=== PATIENT | male | born 1980 | race Caucasian/White ===

== ENCOUNTER 2017-05-29 10:25 | Emergency (ER) | payer MEDICAID ==
[2017-05-29 10:35] VITALS: BP 114/82
--- NOTE | 2017-05-29 10:55 | EDM.PDOC ---
ED HPI GENERAL MEDICAL PROBLEM - General Chief Complaint: Laceration Stated Complaint: [id number] BAD CUT ON HEAD Time Seen by Provider: 05/29/17 10:52 Source of Information: Reports: Patient History Limitations: Reports: No Limitations - History of Present Illness INITIAL COMMENTS - FREE TEXT/NARRATIVE: 36 yo male who presents with 3 cm laceration to forehead at hairline. States that he was hit atop the head with a nail gun that fell off a roof. Denies LOC. c/o pain to head at laceration site. denies pain or injury elsewhere. no other complaints. Onset: Today, Sudden Duration: Constant Location: Reports: Head Quality: Reports: Ache Severity: Moderate Improves with: Reports: None Worsens with: Reports: Other (palpation) Associated Symptoms: Reports: No Other Symptoms Head Pain Score (Numeric/FACES): 8 - Related Data Allergies Allergy/AdvReac Type Severity Reaction Status Date / Time No Known Allergies Allergy Verified 05/29/17 10:35 Home Meds: Home Meds . [No Known Home Meds] 05/29/17 [History] Past Medical History HEENT History: Reports: None Cardiovascular History: Reports: None Respiratory History: Reports: None Gastrointestinal History: Reports: None Genitourinary History: Reports: None Musculoskeletal History: Reports: None Neurological History: Reports: None Psychiatric History: Reports: None Endocrine/Metabolic History: Reports: None Hematologic History: Reports: None Immunologic History: Reports: None Oncologic (Cancer) History: Reports: None Dermatologic History: Reports: None - Infectious Disease History Infectious Disease History: Reports: Chicken Pox - Past Surgical History Head Surgeries/Procedures: Reports: None HEENT Surgical History: Reports: Other (See Below) Other HEENT Surgeries/Procedures: cyst from right ear x 2 Social & Family History - Tobacco Use Smoking Status *Q: Current Every Day Smoker Years of Tobacco use: 15 Packs/Tins Daily: 0.5 - Caffeine Use Caffeine Use: Reports: Coffee, Soda - Recreational Drug Use Recreational Drug Use: No ED ROS GENERAL - Review of Systems Review Of Systems: ROS reveals no pertinent complaints other than HPI. ED EXAM, SKIN/RASH Exam: See Below Exam Limited By: No Limitations General Appearance: Alert, WD/WN, No Apparent Distress Eye Exam: Bilateral Eye: PERRL Head: Normocephalic, Other (laceration) Neck: Normal Inspection, Supple, Non-Tender, Full Range of Motion Respiratory/Chest: No Respiratory Distress, Lungs Clear, Normal Breath Sounds, No Accessory Muscle Use, Chest Non-Tender Cardiovascular: Normal Peripheral Pulses, Regular Rate, Rhythm, No Edema, No Gallop, No JVD, No Murmur, No Rub Neurological: Alert, Oriented, CN II-XII Intact, Normal Cognition, Normal Gait, Normal Reflexes, No Motor/Sensory Deficits Skin: Warm, Dry, Normal Color, No Rash, Wound/Incision (3 cm laceration to forehead ) ED SKIN PROCEDURES - Laceration/Wound Repair Right [place] Head Lac/Wound length In cm: 3 Appearance: Subcutaneous Distal NVT: Neuro & Vascular Intact Anesthetic Type: Local Local Anesthesia - Lidocaine (Xylocaine): 1% With EPI Local Anesthetic Volume: 5cc Skin Prep: Chlorhexidine (Hibiciens), Saline Saline Irrigation (cc's): 30 Closed with: Sutures # of Sutures: 3 Suture Type: Interrupted, Simple Suture Size: 4-0 Repaired with: Vicryl Course - Vital Signs Last Recorded V/S: Last Vital Signs Temp 96.7 F 05/29/17 10:30 Pulse 88 05/29/17 10:30 Resp 16 05/29/17 10:30 BP 114/82 05/29/17 10:30 Pulse Ox 100 05/29/17 10:30 - Orders/Labs/Meds Orders: Active Orders 24 hr Category Date Time Status Vaccines to be Administered [RC] PER UNIT ROUTINE Care 05/29/17 11:36 Ordered Diphth,Pertuss(Acell),Tet Vac [Adacel] Med 05/29/17 11:36 Once 0.5 ml IM .ONCE ONE Meds: Medications Discontinued Medications Generic Name Dose Route Start Last Admin Trade Name Di PRN Reason Stop Dose Admin Lidocaine/Epinephrine 10 ml 05/29/17 10:56 05/29/17 11:00 Xylocaine 1% With Epinephrine 1:100,000 INJECT 05/29/17 10:57 20 ml ONETIME ONE Administration Departure - Departure Time of Disposition: 11:39 Disposition: Home, Self-Care 01 Condition: Good Clinical Impression: Laceration - Discharge Information Instructions: Laceration Care, Adult, [id number] Forms: ED Department Discharge Additional Instructions: Continue to keep wound clean and dry. return for any worsening symptoms. - My Orders Last 24 Hours: My Active Orders 05/29/17 11:36 Vaccines to be Administered [RC] PER UNIT ROUTINE Diphth,Pertuss(Acell),Tet Vac [Adacel] 0.5 ml IM .ONCE ONE - Assessment/Plan Last 24 Hours: My Active Orders 05/29/17 11:36 Vaccines to be Administered [RC] PER UNIT ROUTINE Diphth,Pertuss(Acell),Tet Vac [Adacel] 0.5 ml IM .ONCE ONE
[2017-05-29] MEDS ORDERED: Lidocaine 1% with EPINEPHrine 1:100,000 20 ML MDV INJECT ONE (10:56)
[2017-05-29] MEDS ORDERED: Diphtheria,Pertussis(Acell),Tetanus Vaccine 0.5 ML SDV IM ONE (11:36)
== END 2017-05-29 11:50 | disposition home or self-care (01) ==
LOC: DL.ED 10:25
DX: S01.01XA Laceration without foreign body of scalp, initial encounter (principal); F17.210 Nicotine dependence, cigarettes, uncomplicated; Z23 Encounter for immunization; W20.8XXA Other cause of strike by thrown, projected or falling object, initial encounter
CPT/HCPCS: 12002; 12013; 90471; 90715; 99283

== ENCOUNTER 2017-11-03 12:03 | Emergency (ER) | payer MEDICAID ==
[2017-11-03 12:11] VITALS: BP 162/109
[2017-11-03] MEDS ORDERED: Acetaminophen/HYDROcodone 325-10 MG Tab PO ONE (12:53)
--- NOTE | 2017-11-03 13:01 | EDM.PDOC ---
ED HPI GENERAL MEDICAL PROBLEM - General Chief Complaint: ENT Problem Stated Complaint: MIGRAINE [id number] Time Seen by Provider: 11/03/17 12:50 Source of Information: Reports: Patient History Limitations: Reports: No Limitations - History of Present Illness INITIAL COMMENTS - FREE TEXT/NARRATIVE: This 37 yo male patient reports with a 2 day history of increasing headache and a lengthy history of dental pain. The patient reports his wisdom teeth have come in sideways causing increased pain. The patient has also notice swelling on the right side of his face. The patient does have a history of right ear surgery. The patient reports he has been taking 600 mg of Ibuprofen with little to no symptom relief. Onset: Gradual Duration: Day(s): Location: Reports: Face (Right jaw and face ) Quality: Reports: Ache, Sharp Severity: Moderate Improves with: Reports: None Worsens with: Reports: None Associated Symptoms: Reports: No Other Symptoms Right Oral/Mouth Pain Score (Numeric/FACES): 10 - Related Data Allergies Allergy/AdvReac Type Severity Reaction Status Date / Time No Known Allergies Allergy Verified 11/03/17 12:12 Home Meds: Home Meds . [No Known Home Meds] 05/29/17 [History] Past Medical History HEENT History: Reports: None Cardiovascular History: Reports: None Respiratory History: Reports: None Gastrointestinal History: Reports: None Genitourinary History: Reports: None Musculoskeletal History: Reports: None Neurological History: Reports: None Psychiatric History: Reports: None Endocrine/Metabolic History: Reports: None Hematologic History: Reports: None Immunologic History: Reports: None Oncologic (Cancer) History: Reports: None Dermatologic History: Reports: None - Infectious Disease History Infectious Disease History: Reports: Chicken Pox - Past Surgical History Head Surgeries/Procedures: Reports: None HEENT Surgical History: Reports: Other (See Below) Other HEENT Surgeries/Procedures: cyst from right ear x 2 Social & Family History - Family History Family Medical History: Noncontributory - Tobacco Use Smoking Status *Q: Never Smoker Years of Tobacco use: 15 Packs/Tins Daily: 0.5 Second Hand Smoke Exposure: No - Caffeine Use Caffeine Use: Reports: Coffee - Recreational Drug Use Recreational Drug Use: No ED ROS ENT - Review of Systems Review Of Systems: ROS reveals no pertinent complaints other than HPI. ED EXAM, ENT - Physical Exam Exam: See Below Exam Limited By: No Limitations General Appearance: Alert, WD/WN, No Apparent Distress Eye Exam: Bilateral Eye: EOMI, Normal Inspection, PERRL Ears: Normal External Exam, Normal Canal, Hearing Grossly Normal, Other ( bilateral TM retractions) Nose: Normal Inspection, Normal Mucousa, No Blood Mouth/Throat: Normal Inspection, Normal Gums, Normal Lips, Normal Oropharynx, Normal Teeth Head: Atraumatic, Normocephalic (right sided), Facial Swelling Neck: Normal Inspection, Supple, Non-Tender, Full Range of Motion Respiratory/Chest: No Respiratory Distress, Lungs Clear, Normal Breath Sounds, No Accessory Muscle Use, Chest Non-Tender Cardiovascular: Normal Peripheral Pulses, Regular Rate, Rhythm, No Edema, No Gallop, No JVD, No Murmur, No Rub GI/Abdominal: Normal Bowel Sounds, Soft, Non-Tender, No Organomegaly, No Distention, No Abnormal Bruit, No Mass (Male) Exam: Deferred Rectal (Males) Exam: Deferred Back: Normal Inspection, Full Range of Motion Extremities: Normal Inspection, Normal Range of Motion, Non-Tender, No Pedal Edema, Normal Capillary Refill Neurological: Alert, Oriented, CN II-XII Intact, Normal Cognition, Normal Gait, Normal Reflexes, No Motor/Sensory Deficits Psychiatric: Normal Affect, Normal Mood Skin: Warm, Dry, Intact, Normal Color, No Rash Lymphatic: No Adenopathy Course - Vital Signs Last Recorded V/S: Last Vital Signs Temp 37.0 C 11/03/17 12:10 Pulse 111 H 11/03/17 12:10 Resp 16 11/03/17 12:10 BP 162/109 H 11/03/17 12:10 Pulse Ox 98 11/03/17 12:10 - Orders/Labs/Meds Meds: Medications Discontinued Medications Generic Name Dose Route Start Last Admin Trade Name Freq PRN Reason Stop Dose Admin Hydrocodone Bitart/Acetaminophen 1 tab 11/03/17 12:53 Misenheimer 325-10 Mg PO 11/03/17 12:54 ONETIME ONE Departure - Departure Time of Disposition: 13:02 Disposition: Home, Self-Care 01 Condition: Fair Clinical Impression: Pain, dental, Abscess, dental - Discharge Information Instructions: Dental Abscess, [id number] Care Plan Goals: The patient was advised of the examination results during the visit. The patient was given a dose of oral Misenheimer while in the ED. The patient was discharged with a script for Clindamycin (300 mg) #40 to take by mouth 4 times per day for 10 days. If the patient has any additional symptoms or concerns, the patient should follow-up with his primary care facility or return to the emergency department.
== END 2017-11-03 13:13 | disposition home or self-care (01) ==
LOC: DL.ED 12:03
DX: K04.7 Periapical abscess without sinus (principal)
CPT/HCPCS: 99282; A9270

== ENCOUNTER 2021-10-24 17:49 | Emergency (ER) | payer SELFPAY ==
[2021-10-24 19:59] VITALS: BP 155/101; PULSE 91
[2021-10-24] MEDS ORDERED: Lidocaine 1% 30 ML SDV INJECT ONE (20:22)
[2021-10-24] MEDS ORDERED: Clindamycin HCl 150 MG Cap PO ONE (21:31)
[2021-10-24] MEDS ORDERED: Doxycycline Monohydrate 100 MG Cap PO ONE (21:31)
--- NOTE | 2021-10-24 21:31 | EDM.PDOC ---
ED HPI GENERAL MEDICAL PROBLEM - General Chief Complaint: Skin Complaint Stated Complaint: LEFT INNER THIGH BOIL PER PT Time Seen by Provider: 10/24/21 19:40 Source of Information: Reports: Patient, RN, RN Notes Reviewed History Limitations: Reports: No Limitations - History of Present Illness INITIAL COMMENTS - FREE TEXT/NARRATIVE: Ross is a 41 y/o male who presents to the ED via personal vehicle with complaints of wound and erythema to left medial thigh. The patient states he first noted to wound several weeks ago. He was examined by his PCP at the initiation of the wound, she started him on clindamycin and referred him to general surgery; no I&D was performed. He notes the wound improved with the antibiotics and application of warm compresses, however one week ago it began to reemerge. He characterizes the pain to the area as sharp and localized. He denies fever, shaking chills, palpitations, nausea, vomiting, or diarrhea. He denies loss of motor or sensory function to the lower extremity. He has taken ibuprofen with no alleviation in symptoms. 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 [No Known Home Meds] 05/29/17 [History] Past Medical History HEENT History: Reports: None Cardiovascular History: Reports: None Respiratory History: Reports: None Gastrointestinal History: Reports: None Genitourinary History: Reports: None Musculoskeletal History: Reports: None Neurological History: Reports: None Psychiatric History: Reports: None Endocrine/Metabolic History: Reports: None Hematologic History: Reports: None Immunologic History: Reports: None Oncologic (Cancer) History: Reports: None Dermatologic History: Reports: None - Infectious Disease History Infectious Disease History: Reports: Chicken Pox - Past Surgical History Head Surgeries/Procedures: Reports: None HEENT Surgical History: Reports: Other (See Below) Other HEENT Surgeries/Procedures: cyst from right ear x 2 Social & Family History - Family History Family Medical History: No Pertinent Family History - Tobacco Use Tobacco Use Status *Q: Current Every Day Tobacco User Years of Tobacco use: 20 Packs/Tins Daily: 0.5 - Caffeine Use Caffeine Use: Reports: Coffee, Soda - Recreational Drug Use Recreational Drug Use: No ED ROS GENERAL - Review of Systems Review Of Systems: Comprehensive ROS is negative, except as noted in HPI. ED EXAM, SKIN/RASH Exam: See Below Exam Limited By: No Limitations General Appearance: Alert, No Apparent Distress Eye Exam: Bilateral Eye: EOMI, Normal Inspection, PERRL (2mm) Ears: Normal External Exam, Hearing Grossly Normal Nose: Normal Inspection Throat/Mouth: Normal Inspection, Normal Oropharynx, Normal Voice, No Airway Compromise Head: Atraumatic, Normocephalic Neck: Normal Inspection, Supple, Non-Tender, Full Range of Motion Respiratory/Chest: No Respiratory Distress, Lungs Clear, Normal Breath Sounds, No Accessory Muscle Use, Chest Non-Tender Cardiovascular: Normal Peripheral Pulses, Regular Rate, Rhythm, No Gallop, No Murmur, No Rub Peripheral Pulses: 1+: Posterior Tibial (L), Posterior Tibial (R), 2+: Radial (L), Radial (R), Dorsalis Pedis (L), Dorsalis Pedis (R) GI/Abdominal: Normal Bowel Sounds, Soft, Non-Tender (Male) Exam: No Hernia, Normal Inspection, Circumcised. No: Penile Lesions, Rash, Scrotum Tenderness (L), Scrotum Tenderness (R) Rectal (Males) Exam: Normal Exam Back Exam: Normal Inspection, Full Range of Motion Extremities: Normal Range of Motion, No Pedal Edema, Normal Capillary Refill, Leg Pain (3cm x 4cm draining mass to left medial thigh with 15 cm erythema surrounding), Increased Warmth (To left medial thigh), Redness (To left medial thigh) Neurological: Alert, Oriented, CN II-XII Intact, Normal Cognition, No Motor/Sensory Deficits, Abnormal Gait (Due to chaffing to left medial thigh) Psychiatric: Normal Affect, Normal Mood Skin: Warm, Erythema (To left medial thigh), Increased Warmth (To left medial thigh), Wound/Incision (See above). No: Ecchymosis, Petechiae Location, Skin: Lower Extremity, Left Characteristics: Bullous (Blood-blister appearance atop wound), Erythematous Associated features: Warmth, Tenderness, Swelling, Inflammation, Weeping ED SKIN PROCEDURES - I&D Skin Prep: Providone-Iodine (Betadine), Saline, Sterile Drape Local Anesthesia: Lidocaine: 1% Plain Local Anesthetic Volume: Other (15cc) Area Incised With: 11 Blade Drainage: Bloody, Small Amount Probed to Break Up Loculations: Yes Packed With: None Sterile Dressinx4(s) Complications: No Course - Vital Signs Last Recorded V/S: Last Vital Signs Temp 97.7 F 10/24/21 19:19 Pulse 91 10/24/21 19:19 Resp 17 10/24/21 19:19 BP 155/101 H 10/24/21 19:19 Pulse Ox 94 L 10/24/21 19:19 - Orders/Labs/Meds Orders: Active Orders 24 hr Category Date Time Status CULTURE WOUND [RM] Stat Lab 10/24/21 21:10 Received Meds: Medications Discontinued Medications Generic Name Dose Route Start Last Admin Trade Name Di PRN Reason Stop Dose Admin Clindamycin HCl 150 mg 10/24/21 21:31 10/24/21 21:45 Clindamycin Hcl 150 Mg Cap PO 10/24/21 21:32 150 mg ONETIME ONE Administration Doxycycline Monohydrate 100 mg 10/24/21 21:31 10/24/21 21:45 Doxycycline Monohydrate 100 Mg Cap PO 10/24/21 21:32 100 mg ONETIME ONE Administration Lidocaine HCl 30 ml 10/24/21 20:22 10/24/21 21:44 Lidocaine 1% 30 Ml Sdv INJECT 10/24/21 20:23 30 ml ONETIME ONE Administration - Re-Assessments/Exams Free Text/Narrative Re-Assessment/Exam: 10/24/21 I&D to wound on left thigh performed without complication. Supportive cares reviewed, as well as need for follow up with PCP in 2-3 days. Will treat cellulitis with clindamycin and doxycycline. Red flag signs and symptoms which would warrant immediate reevaluation discussed. Patient verbalized understanding and agreement with the plan of care. Departure - Departure Time of Disposition: 21:24 Disposition: Home, Self-Care 01 Condition: Good Clinical Impression: Abscess or cellulitis of thigh, Encounter for incision and drainage procedure - Discharge Information *PRESCRIPTION DRUG MONITORING PROGRAM REVIEWED*: Not Applicable *COPY OF PRESCRIPTION DRUG MONITORING REPORT IN PATIENT JUSTIN: Not Applicable Instructions: Cellulitis, Adult Referrals: Froylan Palma NP [Primary Care Provider] - Forms: ED Department Discharge Additional Instructions: Rx: clindamycin 300mg (#40) Rx: doxycycline 100mg (#20) 1.) Start your antibiotics tomorrow morning. Continue until all pills are gone, even as symptoms improve. 2.) Keep wound clean and dry. You may shower as normal, avoid baths, hot tubs, and submersion of thigh. 3.) Keep wound covered with dressing until no drainage is present. 4.) Follow up with your primary care provider in 3-5 days for wound reassessment. Sepsis Event Note (ED) - Evaluation Sepsis Screening Result: No Definite Risk - Focused Exam Vital Signs: Vital Signs Temp Pulse Resp BP Pulse Ox 10/24/21 19:19 97.7 F 91 17 155/101 H 94 L - My Orders Last 24 Hours: My Active Orders 10/24/21 21:10 CULTURE WOUND [RM] Stat - Assessment/Plan Last 24 Hours: My Active Orders 10/24/21 21:10 CULTURE WOUND [RM] Stat
== END 2021-10-24 22:06 | disposition home or self-care (01) ==
LOC: DL.ED 17:49
DX: L02.416 Cutaneous abscess of left lower limb (principal); Z72.0 Tobacco use
CPT/HCPCS: 10060; 87070; 99283; A9270

== ENCOUNTER 2025-10-16 22:19 | Emergency (ER) | payer SELFPAY ==
[2025-10-16 22:36] VITALS: BP 179/95; PULSE 103
== END 2025-10-16 23:45 | disposition home or self-care (01) ==
LOC: DL.ED 22:19
DX: K64.8 Other hemorrhoids (principal); L02.214 Cutaneous abscess of groin; F17.210 Nicotine dependence, cigarettes, uncomplicated; Z79.899 Other long term (current) drug therapy
CPT/HCPCS: 99283